=== PATIENT | male | born 1945 | race Caucasian/White ===

== ENCOUNTER 2017-09-07 15:46 | Day surgery (SDC) | payer MEDICARE, BC ==
[~2017-09-07] VITALS: Ht 188 cm; Wt 83.0 kg
[~2017-09-07 15:46] MED LIST: AMLO-99 PO; AMLO1TAB13 PO; ASPI-1471 PO; ATOR20TA22 PO; ATOR40TA24 PO; HYDR-2966 PO; HYDR-385 PO; HYDROCHLOROTHIAZIDE; LISI-362 PO; LISI-374 PO; LISINOPRIL; NAPR220C12 PO; PNEI IJ; PROB500T31 PO; SIMV-54 PO; [UNRECOGNIZED DRUG - OTHER]
[2017-09-07] MEDS ORDERED: ceFAZolin(*) 1 GM VIAL 1 GM in NS(*) 0.9% 100 ML ADDVANT BAG 100 ML IV ONE (16:50)
[2017-09-07] MEDS ORDERED: NORMOSOL R SOLN(*) 1000 ML BAG 1,000 ML IV PRN (16:50)
[2017-09-07] MEDS ORDERED: FAMOTIDINE 20 MG TAB PO ONE (16:50)
[2017-09-07] MEDS ORDERED: LIDOCAINE/SOD BICARB 8.4% SYR ID ONE (16:50)
[2017-09-07] MEDS ORDERED: MIDAZOLAM 2 MG/2 ML VIAL IVP ONE (16:50)
[2017-09-07] MEDS ORDERED: CELECOXIB 200 MG CAP PO ONE (16:50)
[2017-09-07] MEDS ORDERED: ceFAZolin 1 GM VIAL IVPB ONE (17:00)
[2017-09-07 17:30] VITALS: BP 178/68
[2017-09-07] MEDS ORDERED: ROPIVACAINE 0.2% 20 ML VIAL ONE (18:24)
[2017-09-07] MEDS ORDERED: fentaNYL CITR 100 MCG/2 ML AMP ONE ×2 (18:36→20:04)
[2017-09-07] MEDS ORDERED: ONDANSETRON 4 MG/2 ML VIAL ONE (18:55)
[2017-09-07] MEDS ORDERED: LIDOCAINE MPF 1% 5 ML VIAL ONE (18:55)
[2017-09-07] MEDS ORDERED: PROPOFOL EMUL(*) 10MG/ML 20 ML 20 ML ONE (18:55)
[2017-09-07] MEDS ORDERED: GLYCOPYRROLATE 0.2 MG/ML SDV ONE (19:30)
[2017-09-07] MEDS ORDERED: ERTAPENEM(*) 1 GM VIAL 1 GM in NS(*) 0.9% 100 ML ADDVANT BAG 100 ML IVPB ONE (19:30)
[2017-09-07] MEDS ORDERED: ePHEDrine 25 MG/5 ML DISP.SYR IVP ONE (19:41)
--- NOTE | 2017-09-07 20:26 | RADIOLOGY IMAGING REPORT ---
FACILITY: [facility] [place] PATIENT NAME: Sukhjinder Carrillo : 1945 MR: [id number] V: [id number] EXAM DATE: ORDERING PHYSICIAN: SAVANNA HUDSON TECHNOLOGIST: Location: [facility] Patient: Sukhjinder Carrillo : 1945 Visit/Account:[id number] Date of Sevice: 09/07/2017 HAND LIMITED RIGHT HISTORY: Evaluate for osteomyelitis post casting and presurgery. COMPARISON: 06/18/2017. TECHNIQUE: PA view of the right hand. FINDINGS: The fingers are curled, mildly limiting evaluation. There is questionable periosteal reacti on of the middle phalanx of the fifth digit, possibly due to healing fracture. The radial aspect of t he proximal interphalangeal joint of the fifth digit is not well demonstrated. There is degenerative change of all interphalangeal joints and of the first and second metacarpophalangeal joints. There is degenerative change at the first carpometacarpal joint. IMPRESSION: 1. Questionable periosteal reaction of the fifth middle phalanx versus artifact due to positioning. N o cortical destruction or erosion to indicate osteomyelitis. 2. The radial aspect of the fifth proximal interphalangeal joint is not well demarcated, which may be due to positioning/flexion of the fifth finger. If there is high suspicion for osteomyelitis at this joint, repeat imaging with finger straightened is recommended. 3. Degenerative changes of the hand as above. Report Dictated By: Elisabet Coronado at 09/07/2017 8:13 PM Report E-Signed By: Elisabet Coronado at 09/07/2017 8:20 PM WSN:[id number]
[2017-09-07] MEDS ORDERED: LACTATED RINGER 3000 ML BAG IR ONE (20:54)
[2017-09-07] MEDS ORDERED: ERTA1VIA2 IV (21:10)
--- NOTE | 2017-09-09 06:42 | OPERATIVE REPORT 1 ---
EVENT DATE: September 07, 2017 SURGEON: Roberto Finley MD ANESTHESIOLOGIST: Star Barlow MD ANESTHESIA: mobile designer: Ovidio Patrick PA-C PREOPERATIVE DIAGNOSIS Persistent right hand infection status post cat bite with worsening after cessation of intravenous antibiotics. POSTOPERATIVE DIAGNOSIS Persistent right hand infection status post cat bite with worsening after cessation of intravenous antibiotics. Necrotic skin and furtherance of dorsal interosseous necrosis. PROCEDURE PERFORMED Repeat incision and drainage of deep hand wound to include debridement of fourth dorsal interosseous, removal of necrotic skin, debridement of tendons at extensor surface to effect a tenolysis of all six tendons with extension of prior incision for further debridement and application of local wound VAC. ESTIMATED BLOOD LOSS Minimal. IVF 1500. TOURNIQUET TIME Approximately 45 minutes. SPECIMENS Deep cultures. SUMMARY OF PROCEDURE The patient was brought into the operating room, placed on the OR table in the supine position. We brought the x-ray department in and got x-rays of his hand. No evidence of osteomyelitis was seen. The right upper extremity was elevated after adequate prep, and then the tourniquet was inflated without exsanguination. I first used a 4x4 to remove the necrotic debris that would fall away from the wound. We had already removed what residual sutures he had. The tendons were still in reasonably good condition with the exception of the extensor tendon to the long finger that looked like it was getting progressively worse. We did both sharp and dull debridement of numerous different areas on the undersurface of the skin with a curette on the tendons on the periosteal regions, and also in the fourth dorsal interosseous, where there was a little bit of further necrosis. I did extend the incision a bit and cleaned up around the extensor retinaculum. It still did not appear that there was any extension of the wound, either onto the volar surface of the hand or more proximal to the extensor retinaculum. There was actually less volume of debridement required this time around than last. Having completed the debridement, we irrigated with 3000 mL of pulsatile lavage irrigation, including some Asepto irrigation into the intrinsic damage. Having done this, I proceeded to close the wound using a serious of 3-0 nylon sutures, which opposed the edges, but I did not have any expectation that this would be a waterproof repair, so we did apply a Purviance wound VAC with an adhesive. He was then given a dry sterile dressing and a volar splint, and he was awakened and transferred to the recovery area in stable condition. ARTHUR
== END 2017-09-07 21:52 | disposition home or self-care (01) ==
LOC: OR 15:46
PROVIDERS: ATTEND Orthopaedic Surgery Hand Surgery
DX: B99.9 Unspecified infectious disease (principal); I96 Gangrene, not elsewhere classified
CPT/HCPCS: 11043; 73120; 87070; 87073; 87176; A9270; J1335; J2001; J2405; J2704; J2795; J3010; J3490; J7050

== ENCOUNTER → 2017-09-08 | Outpatient (CLI) | payer MEDICARE, BC ==
[~2017-09-08] MED LIST changes: +ERTA1VIA2 IV
[2017-09-08 19:00] VITALS: BP 166/65
[2017-09-08] MEDS: ERTAPENEM(*) 1 GM VIAL 1 GM in NS(*) 0.9% 100 ML BAG 100 ML IVPB PRN (19:02)
[2017-09-09] MEDS: ERTAPENEM(*) 1 GM VIAL 1 GM in NS(*) 0.9% 100 ML BAG 100 ML IVPB PRN (17:49)
[2017-09-09 18:02] VITALS: BP 136/74
[2017-09-10] MEDS: ERTAPENEM(*) 1 GM VIAL 1 GM in NS(*) 0.9% 100 ML BAG 100 ML IVPB PRN (16:49)
[2017-09-10 16:57] VITALS: BP 130/62
== END ==
LOC: SPU 07:27
PROVIDERS: ATTEND Orthopaedic Surgery Hand Surgery
DX: Z79.2 Long term (current) use of antibiotics (principal)
CPT/HCPCS: J1335; J7050

== ENCOUNTER 2017-10-05 08:15 | Outpatient (RCR) | payer MEDICARE, BC ==
[2017-08-23] MEDS: ERTAPENEM(*) 1 GM VIAL 1 GM in NS(*) 0.9% 100 ML ADDVANT BAG 100 ML IVPB SCH (13:10)
[2017-08-24] MEDS: ERTAPENEM(*) 1 GM VIAL 1 GM in NS(*) 0.9% 100 ML ADDVANT BAG 100 ML IVPB SCH (10:59)
[2017-08-24 11:03] VITALS: BP 133/68
[2017-08-25] MEDS: ERTAPENEM(*) 1 GM VIAL 1 GM in NS(*) 0.9% 100 ML ADDVANT BAG 100 ML IVPB SCH (10:54)
[2017-08-25] MEDS: NS(*) 0.9% 100 ML BAG 100 ML IVPB PRN (11:13)
[2017-08-25 11:16] VITALS: BP 133/54
[2017-08-26] MEDS: NS(*) 0.9% 100 ML BAG 100 ML IVPB PRN (11:04)
[2017-08-26] MEDS: ERTAPENEM(*) 1 GM VIAL 1 GM in NS(*) 0.9% 100 ML ADDVANT BAG 100 ML IVPB SCH (11:07)
[2017-08-26 11:11] VITALS: BP 140/71
[2017-08-27] MEDS: ERTAPENEM(*) 1 GM VIAL 1 GM in NS(*) 0.9% 100 ML ADDVANT BAG 100 ML IVPB SCH (10:55)
[2017-08-27 17:23] VITALS: BP 121/72
[2017-08-28] MEDS: ERTAPENEM(*) 1 GM VIAL 1 GM in NS(*) 0.9% 100 ML ADDVANT BAG 100 ML IVPB SCH (11:09)
[2017-08-28 11:55] VITALS: BP 161/67
[2017-08-29] MEDS: ERTAPENEM(*) 1 GM VIAL 1 GM in NS(*) 0.9% 100 ML ADDVANT BAG 100 ML IVPB SCH (11:13)
[2017-08-29 11:15] VITALS: BP 136/66
[2017-08-30] MEDS: ERTAPENEM(*) 1 GM VIAL 1 GM in NS(*) 0.9% 100 ML ADDVANT BAG 100 ML IVPB SCH (11:10)
[2017-08-30 11:25] VITALS: BP 127/73
[2017-08-31 11:00] VITALS: BP 127/73
[2017-09-11] MEDS: ERTAPENEM(*) 1 GM VIAL 1 GM in NS(*) 0.9% 100 ML BAG 100 ML IVPB SCH (13:00)
[2017-09-12] MEDS: ERTAPENEM(*) 1 GM VIAL 1 GM in NS(*) 0.9% 100 ML BAG 100 ML IVPB SCH (13:24)
[2017-09-13 08:33] VITALS: BP 127/59
[2017-09-13] MEDS: ERTAPENEM(*) 1 GM VIAL 1 GM in NS(*) 0.9% 100 ML BAG 100 ML IVPB SCH (08:35)
[2017-09-14 08:24] VITALS: BP 126/64
[2017-09-14] MEDS: ERTAPENEM(*) 1 GM VIAL 1 GM in NS(*) 0.9% 100 ML BAG 100 ML IVPB SCH (08:38)
[2017-09-15 08:19] VITALS: BP 132/63
[2017-09-15] MEDS: ERTAPENEM(*) 1 GM VIAL 1 GM in NS(*) 0.9% 100 ML BAG 100 ML IVPB SCH (08:22)
[2017-09-16 08:21] VITALS: BP 123/62
[2017-09-16] MEDS: ERTAPENEM(*) 1 GM VIAL 1 GM in NS(*) 0.9% 100 ML BAG 100 ML IVPB SCH (08:25)
[2017-09-17 08:21] VITALS: BP 139/66
[2017-09-17] MEDS: ERTAPENEM(*) 1 GM VIAL 1 GM in NS(*) 0.9% 100 ML BAG 100 ML IVPB SCH (08:27)
[2017-09-18] MEDS: ERTAPENEM(*) 1 GM VIAL 1 GM in NS(*) 0.9% 100 ML BAG 100 ML IVPB SCH (08:19)
[2017-09-18 08:22] VITALS: BP 144/71
[2017-09-19] MEDS: ERTAPENEM(*) 1 GM VIAL 1 GM in NS(*) 0.9% 100 ML BAG 100 ML IVPB SCH (08:27)
[2017-09-19 08:30] VITALS: BP 135/61
[2017-09-20] MEDS: ERTAPENEM(*) 1 GM VIAL 1 GM in NS(*) 0.9% 100 ML BAG 100 ML IVPB SCH ×2 (08:20→08:25)
[2017-09-20 08:26] VITALS: BP 130/68
[2017-09-21] MEDS: ERTAPENEM(*) 1 GM VIAL 1 GM in NS(*) 0.9% 100 ML BAG 100 ML IVPB SCH (08:37)
[2017-09-21 08:40] VITALS: BP 113/60
[2017-09-22] MEDS: ERTAPENEM(*) 1 GM VIAL 1 GM in NS(*) 0.9% 100 ML BAG 100 ML IVPB SCH (08:26)
[2017-09-22 09:00] VITALS: BP 107/58
[2017-09-22] MEDS: NS(*) 0.9% 100 ML BAG 100 ML IVPB PRN (09:06)
[2017-09-23] MEDS: NS(*) 0.9% 100 ML BAG 100 ML IVPB PRN (08:16)
[2017-09-23] MEDS: ERTAPENEM(*) 1 GM VIAL 1 GM in NS(*) 0.9% 100 ML BAG 100 ML IVPB SCH (08:17)
[2017-09-23 09:02] VITALS: BP 139/69
[2017-09-24 08:23] VITALS: BP 120/78
[2017-09-24] MEDS: ERTAPENEM(*) 1 GM VIAL 1 GM in NS(*) 0.9% 100 ML BAG 100 ML IVPB SCH (08:26)
[2017-09-25] MEDS: ERTAPENEM(*) 1 GM VIAL 1 GM in NS(*) 0.9% 100 ML BAG 100 ML IVPB SCH (08:27)
[2017-09-25 09:13] VITALS: BP 139/57
[2017-09-26] MEDS: ERTAPENEM(*) 1 GM VIAL 1 GM in NS(*) 0.9% 100 ML BAG 100 ML IVPB SCH (08:26)
[2017-09-26 08:27] VITALS: BP 140/67
[2017-09-27 08:23] VITALS: BP 136/63
[2017-09-27] MEDS: ERTAPENEM(*) 1 GM VIAL 1 GM in NS(*) 0.9% 100 ML BAG 100 ML IVPB SCH (08:25)
[2017-09-28] MEDS: ERTAPENEM(*) 1 GM VIAL 1 GM in NS(*) 0.9% 100 ML BAG 100 ML IVPB SCH (08:36)
[2017-09-28 08:57] VITALS: BP 132/71
[2017-09-29] MEDS: ERTAPENEM(*) 1 GM VIAL 1 GM in NS(*) 0.9% 100 ML BAG 100 ML IVPB SCH (08:10)
[2017-09-29 08:12] VITALS: BP 151/86
[2017-09-30 08:11] VITALS: BP 152/68
[2017-09-30] MEDS: ERTAPENEM(*) 1 GM VIAL 1 GM in NS(*) 0.9% 100 ML BAG 100 ML IVPB SCH (08:14)
[2017-10-01 08:14] VITALS: BP 161/87
[2017-10-01] MEDS: ERTAPENEM(*) 1 GM VIAL 1 GM in NS(*) 0.9% 100 ML BAG 100 ML IVPB SCH (08:17)
[2017-10-02] MEDS: ERTAPENEM(*) 1 GM VIAL 1 GM in NS(*) 0.9% 100 ML BAG 100 ML IVPB SCH (08:27)
[2017-10-02 08:29] VITALS: BP 126/68
[2017-10-03 08:27] VITALS: BP 145/70
[2017-10-03] MEDS: ERTAPENEM(*) 1 GM VIAL 1 GM in NS(*) 0.9% 100 ML BAG 100 ML IVPB SCH (08:30)
[2017-10-04] MEDS: ERTAPENEM(*) 1 GM VIAL 1 GM in NS(*) 0.9% 100 ML BAG 100 ML IVPB SCH (08:30)
[2017-10-04 08:38] VITALS: BP 129/63
[~2017-10-05 08:15] MED LIST changes: +ALTEPLASE RECOMB 2 MG VIAL IVP PRN; +DEXTROSE 5%(*) 100 ML BAG 100 ML IVPB PRN; +NS(*) 0.9% 500 ML BAG 500 ML IV PRN; +WATER STERILE 10 ML VIAL IVP PRN
[2017-10-05] MEDS: ERTAPENEM(*) 1 GM VIAL 1 GM in NS(*) 0.9% 100 ML BAG 100 ML IVPB SCH (08:17)
[2017-10-05 08:18] VITALS: BP 146/74
[2017-10-09] MEDS ORDERED: AMOX-559 PO (11:05)
[2017-10-09] MEDS ORDERED: AMOX-556 PO (11:05)
[2017-10-09] MEDS ORDERED: AMOX-362 PO (11:05)
== END 2017-11-07 10:12 | disposition home or self-care (01) ==
LOC: SPU 08:15
PROVIDERS: ATTEND Internal Medicine
DX: Z79.2 Long term (current) use of antibiotics (principal)
CPT/HCPCS: 96365; A6209; J1335; J1642; J7050; 36569; 76937; 96374; 96375; C1751; J2001

== ENCOUNTER → 2017-11-06 | Outpatient (REF) | payer MEDICARE, BC ==
[~2017-11-06] MED LIST changes: -ALTEPLASE RECOMB 2 MG VIAL IVP PRN; +AMOX-362 PO; +AMOX-556 PO; +AMOX-559 PO; -DEXTROSE 5%(*) 100 ML BAG 100 ML IVPB PRN; -NS(*) 0.9% 500 ML BAG 500 ML IV PRN; -WATER STERILE 10 ML VIAL IVP PRN
== END ==
LOC: ZZSENDIN 09:19
PROVIDERS: ATTEND Orthopaedic Surgery Hand Surgery
DX: M86.141 Other acute osteomyelitis, right hand (principal)
CPT/HCPCS: 82565; 87070; 87073; 87176; 87205

== ENCOUNTER → 2017-11-06 | Outpatient (REF) | payer MEDICARE, BC | LOC: ZZSENDIN 12:00 | PROVIDERS: ATTEND Orthopaedic Surgery Hand Surgery | DX: M86.141 Other acute osteomyelitis, right hand (principal) | CPT/HCPCS: 88305 ==

== ENCOUNTER → 2018-06-13 | Outpatient (CLI) | payer MEDICARE, BC ==
[~2018-06-13] MED LIST changes: +AMLO-113 PO; -AMLO-99 PO; +PNEU0.5D3 IM
== END ==
LOC: RESP 19:51
PROVIDERS: ATTEND Internal Medicine
DX: G47.33 Obstructive sleep apnea (adult) (pediatric) (principal); G47.61 Periodic limb movement disorder; G47.36 Sleep related hypoventilation in conditions classified elsewhere

== ENCOUNTER → 2018-07-08 | Outpatient (CLI) | payer MEDICARE, BC ==
[~2018-07-08] MED LIST changes: +POTA8TAB41 PO
[2018-07-08 13:31] LABS: PLATELET COUNT, AUTOMATED 213 K/uL (150-450)
[2018-07-08 13:36] LABS: LDL CHOLESTEROL 55 mg/dl
== END ==
LOC: LAB 13:03
PROVIDERS: ATTEND Internal Medicine
DX: D75.1 Secondary polycythemia (principal); Z87.891 Personal history of nicotine dependence; E78.5 Hyperlipidemia, unspecified; I10 Essential (primary) hypertension; G47.33 Obstructive sleep apnea (adult) (pediatric)
CPT/HCPCS: 36415; 82728; 83540; 83550; 84443; 84550; 85025; G0103; 82040; 82247; 82310; 82374; 82435; 82465; 82565; 82947; 83036; 83718; 84075; 84132; 84153; 84155; 84295; 84450; 84460; 84478; 84520

== ENCOUNTER → 2018-08-01 | Outpatient (CLI) | payer MEDICARE, BC | LOC: US 01:59 | PROVIDERS: ATTEND Internal Medicine | DX: I35.0 Nonrheumatic aortic (valve) stenosis (principal); I35.1 Nonrheumatic aortic (valve) insufficiency | CPT/HCPCS: 93306 ==